=== PATIENT | female | born 1990 | race Caucasian/White ===

== ENCOUNTER 2017-07-14 06:00 | Inpatient (IN) ==
[2017-07-14] MEDS ORDERED: D5LR 1,000 ML IV PRN (09:28)
[2017-07-14] MEDS ORDERED: OXYTOCIN DRIP 30 UNIT/500 ML ML IV PRN (09:28)
[2017-07-14] MEDS ORDERED: METHYLERGONOVINE 0.2 MG/ML INJECTION IM PRN (09:28)
[2017-07-14] MEDS ORDERED: CARBOPROST 250 MCG/ML INJECTION IM PRN (09:28)
[2017-07-14] MEDS ORDERED: LIDOCAINE 1% (10mg/ml) 2mL INJ PF SDV ID PRN (09:28)
[2017-07-14] MEDS ORDERED: ACETAMINOPHEN 500 MG TABLET PO PRN ×2 (09:28→19:54)
[2017-07-14] MEDS ORDERED: MAG-AL + SIM ORAL LIQUID 30ml PO PRN ×2 (09:28→19:54)
[2017-07-14] MEDS ORDERED: CALCIUM CARBONATE Chewable 500mg TABLET PO PRN ×2 (09:28→19:54)
[2017-07-14] MEDS: LR 1,000 ML IV PRN ×2 (10:05→15:09)
[2017-07-14 10:44] VITALS: O2SAT 98
--- NOTE | 2017-07-14 11:19 | Anesthesia Preoperative Report ---
Anesthesia Epidural/Spinal Rec - Date and Time Date: 07/14/17 Preoperative Diagnosis: induction Procedure: Labor Epidural Plan: Epidural - Vital Signs Vital Signs: Temperature 98.1 F 07/14/17 10:28 Pulse Rate 86 07/14/17 10:28 Respiratory Rate 18 07/14/17 10:28 Blood Pressure 132/81 07/14/17 10:28 Pulse Oximetry 98 07/14/17 10:28 Oxygen Delivery Method Room Air /Para: P:6 - Medictaions & Allergies Inpatient Medications: Current Medications Acetaminophen (Tylenol) 500 - 1,000 mg PO Q4H PRN PRN Reason: Pain Al Hydroxide/Mg Hydroxide (Maalox Plus) 30 ml PO Q3H PRN PRN Reason: Indigestion Calcium Carbonate (Tums) 500 - 1,000 mg PO Q2H PRN PRN Reason: Indigestion Carboprost Tromethamine (Hemabate) 250 mcg IM O PRN PRN Reason: .Downtime Oxytocin (Pitocin Drip) 30 unit in 500 mls @ 2 mls/hr IV .Q24H PRN; Protocol PRN Reason: Induction/Augmentation Last Admin: 07/14/17 10:16 Dose: 2 mls/hr Dextrose/Lactated Ringer's (Dextrose 5%-Lactated Ringers) 1,000 mls @ 125 mls/ hr IV .Q8H PRN PRN Reason: Labor Last Admin: 07/14/17 10:15 Dose: 125 mls/hr Lidocaine HCl (Xylocaine-Mpf 1% Vial) 0.2 mg ID O PRN PRN Reason: IV Start Methylergonovine Maleate (Methergine) 0.2 mg IM O PRN Misoprostol (Cytotec) 800 mcg NH ONCE PRN Allergies/Adverse Reactions: Allergies Allergy/AdvReac Type Severity Reaction Status Date / Time metoclopramide [From [facility]] Allergy Rash Verified 07/14/17 10:51 acetaminophen [From [place]] AdvReac Itching Verified 07/14/17 10:52 hydrocodone [From [place]] AdvReac Itching Verified 07/14/17 10:52 - Home Medications Home Medications: Home Medications Medication Instructions Recorded Confirmed Type Oxycodone/APAP 5/325 [Percocet 1 - 2 tab PO Q4H PRN 05/06/17 07/14/17 History 5/325] Vit No.124/Iron/Folic 1 each PO DAILY 05/06/17 07/14/17 History [ Vitamin Tablet] Acetaminophen [Tylenol] 1,000 mg PO Q5H 07/14/17 07/14/17 History Valacyclovir [Valtrex] 1 tab PO BID 07/14/17 07/14/17 History raNITIdine HCl [Zantac 75] 75 mg PO DAILY 07/14/17 07/14/17 History - Surgical History Anesthesia Reactions: None Hx Family Anesthesia Reaction: No History of Motion Sickness: No - Social History Second Hand Exposure: No Substance Use Type: does not use Alcohol Intake Frequency: does not drink Hx Chewing Tobacco Use: No - Pertinent Findings Lab Data: CBC and BMP 07/14/17 09:46 EKG Rhythm: Normal Sinus Rhythm - Physical Exam Respiratory Exam: lungs clear Cardiovascular Exam: regular rate and rhythm, no murmur - Airway Assessment Mallampati Score: II TMD: 3 Fingerbreadths Neck Extension: good Teeth: chipped teeth/crowns Overall Assessment: no airway concerns - ASA ASA Score: 2 - Discussion Discussion: Discussed risks/options/alternatives of anesthesia and questions answered. Patient consents. Nursing pain assessment noted. Anesthesia Discussion: friend Attestation Statement: Prior to the delivery of any anesthetic medication, I examined the patient, developed the plan, obtained the patient's consent and discussed the risk and benefits of the procedure with the patient/guardian.
[2017-07-14 13:51] VITALS: BMI 40.6
[2017-07-14] MEDS ORDERED: ROPIVACAINE 1% 10MG/ML INJ 200 MG, SUFentanil 50 MCG in NS 100 ML EPI PRN (14:57)
[2017-07-14] MEDS ORDERED: DiphenhydrAMINE 50 MG/ML INJECTION IVP PRN (14:57)
[2017-07-14] MEDS ORDERED: NALOXONE 0.4 MG/ML INJECTION IVP PRN (14:57)
[2017-07-14] MEDS: ONDANSETRON 4 MG/2 ML INJECTION IVP PRN ×2 (15:08→23:26)
[2017-07-14] MEDS ORDERED: DiphenhydrAMINE 25 MG CAPSULE PO PRN (19:54)
[2017-07-14] MEDS ORDERED: MEASLES-MUMPS-RUBELLA VACCINE 0.5ml INJECTION SQ ONE (19:54)
[2017-07-14] MEDS ORDERED: HYDROCODONE/APAP 5mg/325mg TABLET PO PRN (19:54)
[2017-07-14] MEDS ORDERED: OXYTOCIN DRIP 30 UNIT/500 ML ML IV SCH (19:54)
[2017-07-14] MEDS ORDERED: HYDROCORTISONE 2.5% CREAM 30gm RECTALLY PRN (19:54)
[2017-07-14] MEDS ORDERED: BENZOCAINE 20% SPRAY 0.5 ML MM ONE (19:54)
[2017-07-14] MEDS: IBUPROFEN 800 MG TABLET PO PRN (20:02)
[2017-07-14] MEDS: Oxycodone/Acetaminophen 5/325 1 TAB PO PRN (21:18)
--- NOTE | 2017-07-14 21:37 | Anesthesia Postoperative Note ---
- Date and Time Date: 07/14/17 Time: 21:10 - Status Patient Participated in Evaluation: Patient Participated in Person Vital Signs: Temperature 98.0 F 07/14/17 17:00 Pulse Rate 101 H 07/14/17 17:00 Respiratory Rate 18 07/14/17 17:00 Blood Pressure 123/75 07/14/17 17:00 Pulse Oximetry 98 07/14/17 10:28 Oxygen Delivery Method Room Air Respiratory Function: Airway Patent Cardiovascular Function: Regular Pulse EKG Rhythm: Normal Sinus Rhythm Mental Status: Alert and Oriented Pain Intensity: 2 Hydration: Taking PO Fluids, IV Infusing Complications During Recover: None Apparent - Follow-Up Instructions Instructions: Per Surgeon
[2017-07-14] MEDS: SALINE FLUSH 10ml SYRINGE IVF PRN ×2 (22:54→23:26)
[2017-07-14 23:40] VITALS: RESP 16
[2017-07-15] MEDS: Oxycodone/Acetaminophen 5/325 1 TAB PO PRN ×2 (07:14→12:15)
[2017-07-15] MEDS: IBUPROFEN 800 MG TABLET PO PRN ×2 (07:15→15:28)
[2017-07-15] MEDS ORDERED: DOCUSATE CALCIUM 240 MG CAPSULE PO SCH (09:00)
--- NOTE | 2017-07-15 10:00 | Labor and Delivery Note ---
DATE OF DELIVERY: 07/14/2017 DIAGNOSES 1. 27-year-old white female, G7, P6 at 37.1 weeks gestational age. 2. Pitocin induction of labor for severe polyhydramnios at term. 3. 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 4. Artificial rupture of membranes. 5. Epidural anesthesia. 6. Spontaneous vaginal delivery. 7. Female infant, Apgars, 3710 g (8 pounds 3 ounces) (Cammie Restrepo) ( ADOPTING OUT). DESCRIPTION This is a patient who has seen me three times this including twice this week. She was originally seen as an unassigned patient in OB triage with gallstones. Then she was seen in the office on May 17 and then her next return visit was July 11, or three days ago. She is planning on adopting out. This she has seen Dr. Von Plata and Dr. Almanza and me. She would like to deliver in [place]. When I saw her three days ago she was measuring a large fundal height so we got a sonogram ordered and it ended up being done yesterday which showed severe polyhydramnios and LGA baby. Because of the severe polyhydramnios at term we went ahead and brought her in for induction today. The GBS came back and was negative. We attempted to get her records from [facility] but they never sent them after the April visit and we did get them prior to delivery. I brought her in today for induction and initially her cervix was 2 cm. Pitocin reached a maximum of 30 milliunits a minute. When I broke her water I carefully just made a pinhole defect to allow the fluid to drain and decompress. We sat at 20 milliunits of Pitocin for some time. When I rechecked her she was only 3.5 to 4 cm so we upped the Pitocin per protocol to 30. Then she began making progress. When she was complete and in the OA position we began pushing and with the second contraction we had a spontaneous vaginal delivery from the OA position. Infant was bulb suctioned after delivery of the head and then again after delivery of the body. I allowed the cord drain for about two and a half minutes and then we brought in the adoptive father and he cut the cord. Infant was initially taken to the isolette. The adoptive parents were brought in to be included at this point in time. Placenta delivered spontaneously and was intact. Perineum was intact. I will send the placenta off to be viewed by Pathology because of the polyhydramnios. MMR shot will be ordered because she is nonimmune. There are no herpes simplex lesions seen today on any of my exams so we went ahead and delivered vaginally. She had only been on suppression for two days. At time of dictation mother and are doing well. LAVON
--- NOTE | 2017-07-15 12:58 | OB/GYN Progress Note ---
OB-PP Progress Note - General PPD1 Maternal Group B Strep: Negative Maternal blood type: O+ Maternal Rubella Status: Not Immune - Subjective Date: 07/15/17 Lochia: Minimal Pain: contolled Voiding: voiding Subjective Comments: She reports she felt dizzy when she just got up to void. - Objective Vital Signs: Last Vital Signs Temp 98.0 F 07/15/17 07:15 Pulse 90 07/15/17 07:15 Resp 16 07/15/17 07:15 BP 107/76 07/15/17 07:15 Pulse Ox 98 07/14/17 10:28 Urine Output: good General: alert and oriented Abdomen: fundus firm, non-tender Extremities: non-tender Laboratory: Laboratory Results - last 24 hr 07/15/17 07:10 WBC 10.4 RBC 4.33 Hgb 10.7 L D Hct 33.1 L D MCV 76.4 L MCH 24.7 L MCHC 32.3 RDW Std Deviation 37.6 Plt Count 126 L MPV 10.1 - Assessment Assessment: - Plan Plan: routine care Rec she sit and dangle longer prior to getting out of bed. MMR given yesterday. They aren't sure as to when the adoption papers will be signed.
[2017-07-15 17:16] VITALS: BP 135/69; PULSE 102; TEMP 98.4
== END 2017-07-15 16:06 | disposition home or self-care (01) | DRG 774 ==
LOC: MC 09:12
PROVIDERS: ADMIT Obstetrics & Gynecology; ATTEND Obstetrics & Gynecology